=== PATIENT | male | born 1940 | race Caucasian/White ===

== ENCOUNTER 2016-05-22 11:12 | Emergency (ER) | payer OTHER ==
[~2016-05-22] VITALS: Ht 175.3 cm; Wt 88.6 kg
[~2016-05-22 11:12] MED LIST: ADVAIR 500/501 DISK IH; ALLOPURINOL100 MG PO; APRESOLINE10 MG PO; AQUAPHOR W-NAT50 GM TP; AUGMENTIN500 MG PO; BENICAR40 MG PO; BYSTOLIC10 MG PO; CARDURA4 MG PO; CATAPRES0.3 MG PO; CEFDINIR300 MG PO; CENTRUM SILVER1 EAC3 PO; CIALIS10 MG PO; CLINDAMYCIN HC300 MG PO; CLONIDINE HCL0.1 MG PO; CLONIDINE HCL0.3 MG PO; COMBIVENT RESPIM4 GM IH; CONSTULOSE10 GM/15 M PO; CRESTOR10 MG PO; CYANOCOBALAM1000 MCG PO; DAILY VALUE1 EACH PO; DUONEB 2.5-0.5 M3 ML AEROSOL; FERROUS SULFAT325 MG PO; FISH OIL500 MG PO; FLOMAX0.4 MG PO; FLORASTOR250 MG PO; FUROSEMIDE40 MG PO; GABAPENTIN100 MG PO; GENERLAC10 GM/15 M PO; GLIPIZIDE5 MG PO; IRON325 MG PO; JANUVIA25 M1 PO; K-DUR20 MEQ PO; KRILL OIL 5001 EACH PO; LASIX80 MG PO; LUNESTA2 MG PO; MELATONIN3 MG PO; MELATONIN5 M1 PO; MYCOSTATIN 100,60 ML PO; PREDNISONE10 MG PO; PROAIR HFA8.5 GM IH; PROVENTIL,2.5 MG/3 M IH; SPIRONOLACTONE25 MG PO; STOOL SOFTENER100 MG PO; TAMSULOSIN HCL0.4 MG PO; TRADJENTA5 MG PO; TRICOR145 MG PO; VENTOLIN HFA18 GM IH; VITAMIN B12-FO1 EACH PO; VITAMIN D-32000 UNI2 PO; VITAMIN D32000 UNI1 PO; XANAX0.25 MG PO; XARELTO15 MG PO; ZYLOPRIM100 MG PO
[2016-05-22 12:08] LABS: HEMATOCRIT 31.2 % (38.0-50.0); MCH 28.9 PG (29.0-34.0); MCHC 32.7 G/DL (30.0-36.0); MCV 88.4 FL (86-99); MEAN PLAT.VOLUME 10.8 uM^3 (9.0-12.4); PLATELET COUNT 141 K/uL (156-360); RBC DIS.WIDTH-CV 15.4 % (11.8-14.6); RBC DIS.WIDTH-SD 49.6 % (39-53); RED BLOOD COUNT 3.53 M/uL (4.00-5.50); WHITE BLOOD COUNT 7.2 K/uL (4.1-10.2)
[2016-05-22 13:07] VITALS: BP 133/73
== END 2016-05-22 13:07 | disposition home or self-care (01) ==
LOC: EME 11:12
PROVIDERS: Physician Assistant
DX: S51.801A Unspecified open wound of right forearm, initial encounter (principal); W22.09XA Striking against other stationary object, initial encounter; Y92.002 Bathroom of unspecified non-institutional (private) residence as the place of occurrence of the external cause; Z79.01 Long term (current) use of anticoagulants; J44.9 Chronic obstructive pulmonary disease, unspecified; E11.9 Type 2 diabetes mellitus without complications; I10 Essential (primary) hypertension; Z87.891 Personal history of nicotine dependence
CPT/HCPCS: 85027; 99281; 99284

== ENCOUNTER 2016-06-08 02:29 | Inpatient (IN) | payer OTHER ==
[~2016-06-08] VITALS: Ht 175.3 cm; Wt 91.1 kg
[2016-06-08 03:10] LABS: HEMATOCRIT 32.6 % (38.0-50.0); MCH 28.5 PG (29.0-34.0); MCHC 32.8 G/DL (30.0-36.0); MCV 86.9 FL (86-99); MEAN PLAT.VOLUME 11.5 uM^3 (9.0-12.4); PLATELET COUNT 157 K/uL (156-360); RBC DIS.WIDTH-CV 15.8 % (11.8-14.6); RBC DIS.WIDTH-SD 50.2 % (39-53); RED BLOOD COUNT 3.75 M/uL (4.00-5.50)
[2016-06-08 03:23] LABS: CHLORIDE 101 mEq/L (99-109); POTASSIUM 3.9 mEq/L (3.7-5.4); SODIUM 138 mEq/L (136-147)
[2016-06-08 03:24] LABS: GLUCOSE 128 mg/dL (70-99)
[2016-06-08 03:26] LABS: ANION GAP 11 MEQ/L (2-14)
[2016-06-08 03:28] LABS: GFR ESTIMATE (CALCULATED) 35 mL/min/; TROP-I INTERPRETATION NEGATIVE; TROPONIN-I 0.07 ng/mL (0.0-0.30)
[2016-06-08 03:29] LABS: UREA NITROGEN (BUN) 44 mg/dL (9-23)
[2016-06-08] MEDS ORDERED: CLONIDINE HCL0.3 MG PO (04:21)
[2016-06-08] MEDS ORDERED: BYSTOLIC5 MG PO (04:22)
[2016-06-08] MEDS ORDERED: CINNAMON500 MG PO (04:25)
[2016-06-08] MEDS ORDERED: ZZZQUIL25 MG PO (04:28)
[2016-06-08] MEDS ORDERED: BUMETANIDE2 MG PO (04:29)
[2016-06-08] MEDS ORDERED: SILDENAFIL20 MG PO (04:29)
[2016-06-08] MEDS ORDERED: IRON160 M1 PO (04:31)
[2016-06-08 04:54] LABS: TOTAL BILIRUBIN 1.7 mg/dL (0.0-1.0)
[2016-06-08 04:55] LABS: ALKALINE PHOSPHATASE 40 IU/L (3-129)
[2016-06-08 04:58] LABS: DIRECT BILIRUBIN 1.2 mg/dL (0.0-0.3)
[2016-06-08 05:00] LABS: INTER. NORMALIZED RATIO 1.5; PTT 28.6 (25-32)
[2016-06-08] MEDS ORDERED: TRICOR145 MG PO (07:54)
[2016-06-08 08:30] VITALS: BP 111/59
[2016-06-08 12:00] VITALS: BP 115/65
[2016-06-08 12:20] LABS: POINT-OF-CARE METER ID UU13113807
[2016-06-08 16:00] VITALS: BP 135/62
[2016-06-08 17:47] LABS: POINT-OF-CARE METER ID UU14149398
[2016-06-08 19:45] VITALS: BP 146/66
[2016-06-08 21:38] LABS: POINT-OF-CARE METER ID UU14149398
[2016-06-08 23:38] VITALS: BP 115/60
[2016-06-09 04:50] VITALS: BP 140/90
[2016-06-09 07:15] LABS: EOSINOPHIL (%) 0.5 % (0-5); EOSINOPHIL COUNT 0.1 K/uL (0-0.3); HEMATOCRIT 32.5 % (38.0-50.0); IMMATURE GRANULOCYTE (%) 0.5 % (0.0-0.7); IMMATURE GRANULOCYTE COUNT 0.1 K/uL; INSTRUMENT ABS NEUTROPHIL CT 12.2 K/uL; LYMPHOCYTE COUNT 0.6 K/uL (1.0-2.8); MCH 28.9 PG (29.0-34.0); MCHC 32.3 G/DL (30.0-36.0); MCV 89.5 FL (86-99); MEAN PLAT.VOLUME 11.3 uM^3 (9.0-12.4); MONOCYTE (%) 4.8 % (3-12); MONOCYTE COUNT 0.7 K/uL (0-0.8); NEUTROPHIL (%) 89.8 % (45-76); NEUTROPHIL COUNT 12.2 K/uL (1.8-6.4); PLATELET COUNT 120 K/uL (156-360); RBC DIS.WIDTH-CV 15.9 % (11.8-14.6); RBC DIS.WIDTH-SD 52.8 % (39-53); RED BLOOD COUNT 3.63 M/uL (4.00-5.50); WHITE BLOOD COUNT 13.6 K/uL (4.1-10.2)
[2016-06-09 07:38] LABS: POINT-OF-CARE METER ID UU14149398
[2016-06-09 07:44] LABS: ANION GAP 8 MEQ/L (2-14); CHLORIDE 100 MEQ/L (99-109); GFR ESTIMATE (CALCULATED) 37 mL/min/; GLUCOSE 99 mg/dL (70-99); MAGNESIUM 2.1 mg/dl (1.3-2.7); POTASSIUM 3.8 MEQ/L (3.7-5.4); SAMPLE HEMOLYSIS CHECK 0; SAMPLE ICTERIC CHECK 0; SAMPLE LIPEMIA CHECK 0; SODIUM 138 MEQ/L (136-147); UREA NITROGEN (BUN) 45 mg/dL (9-23)
[2016-06-09 12:00] VITALS: BP 127/60
[2016-06-09 12:41] LABS: POINT-OF-CARE METER ID UU14149398
[2016-06-09 13:23] LABS: ADD MIUA? NO; BILIRUBIN NEGATIVE; BLOOD NEGATIVE; COLOR YELLOW ((YELLOW)); GLUCOSE (STRIP) NEGATIVE; KETONES NEGATIVE; LEUKOCYTES NEGATIVE; NITRITE NEGATIVE; PROTEIN (STRIP) NEGATIVE; SPECIFIC GRAVITY 1.009 (1.000-1.030); UROBILINOGEN 0.2 MG/DL (0.2-1.0)
[2016-06-09 16:15] VITALS: BP 142/65
[2016-06-09 16:57] LABS: POINT-OF-CARE METER ID UU14149398
[2016-06-09 19:44] VITALS: BP 134/68
[2016-06-09 21:18] LABS: POINT-OF-CARE METER ID UU14149398
[2016-06-10 00:10] VITALS: BP 114/66
[2016-06-10 04:25] VITALS: BP 132/80
[2016-06-10 07:53] VITALS: BP 138/62
[2016-06-10 08:14] LABS: ANION GAP 7 MEQ/L (2-14); CHLORIDE 99 MEQ/L (99-109); GFR ESTIMATE (CALCULATED) 39 mL/min/; GLUCOSE 88 mg/dL (70-99); POTASSIUM 4.1 MEQ/L (3.7-5.4); SAMPLE HEMOLYSIS CHECK 0; SAMPLE ICTERIC CHECK 0; SAMPLE LIPEMIA CHECK 0; SODIUM 137 MEQ/L (136-147); UREA NITROGEN (BUN) 50 mg/dL (9-23)
[2016-06-10 08:25] LABS: EOSINOPHIL (%) 1.6 % (0-5); EOSINOPHIL COUNT 0.1 K/uL (0-0.3); HEMATOCRIT 32.7 % (38.0-50.0); IMMATURE GRANULOCYTE (%) 0.5 % (0.0-0.7); INSTRUMENT ABS NEUTROPHIL CT 7.4 K/uL; LYMPHOCYTE COUNT 0.7 K/uL (1.0-2.8); MCH 28.5 PG (29.0-34.0); MCHC 32.1 G/DL (30.0-36.0); MCV 88.6 FL (86-99); MEAN PLAT.VOLUME 11.5 uM^3 (9.0-12.4); MONOCYTE (%) 4.6 % (3-12); MONOCYTE COUNT 0.4 K/uL (0-0.8); NEUTROPHIL (%) 84.4 % (45-76); NEUTROPHIL COUNT 7.4 K/uL (1.8-6.4); PLATELET COUNT 137 K/uL (156-360); RBC DIS.WIDTH-CV 15.8 % (11.8-14.6); RBC DIS.WIDTH-SD 51.3 % (39-53); RED BLOOD COUNT 3.69 M/uL (4.00-5.50)
[2016-06-10 08:34] LABS: POINT-OF-CARE METER ID UU14149398
[2016-06-10 08:42] LABS: WHITE BLOOD COUNT 8.7 K/uL (4.1-10.2)
[2016-06-10] MEDS ORDERED: SPIRONOLACTONE25 MG PO (11:16)
== END 2016-06-10 13:53 | disposition home or self-care (01) | DRG 291 ==
LOC: EME 02:29 → 4SOUTH 03:47 → EDOF 03:47 → 4SOUTH 07:52
PROVIDERS: Internal Medicine; Internal Medicine Nephrology; Physician Assistant Medical
PROC: 5A09357 Assistance with Respiratory Ventilation, Less than 24 Consecutive Hours, Continuous Positive Airway Pressure (ICD-10-PCS; principal; 2016-06-08)
DX: I13.0 Hypertensive heart and chronic kidney disease with heart failure and stage 1 through stage 4 chronic kidney disease, or unspecified chronic kidney disease (principal); I50.9 Heart failure, unspecified; N17.9 Acute kidney failure, unspecified; J96.21 Acute and chronic respiratory failure with hypoxia; J44.1 Chronic obstructive pulmonary disease with (acute) exacerbation; E87.70 Fluid overload, unspecified; I27.2 Other secondary pulmonary hypertension; G47.33 Obstructive sleep apnea (adult) (pediatric); N18.3 Chronic kidney disease, stage 3 (moderate); J45.909 Unspecified asthma, uncomplicated; I27.81 Cor pulmonale (chronic); E78.5 Hyperlipidemia, unspecified; E11.22 Type 2 diabetes mellitus with diabetic chronic kidney disease; I48.2 Chronic atrial fibrillation; I08.1 Rheumatic disorders of both mitral and tricuspid valves; K21.9 Gastro-esophageal reflux disease without esophagitis; I87.8 Other specified disorders of veins; D64.9 Anemia, unspecified; N40.0 Benign prostatic hyperplasia without lower urinary tract symptoms; Z66 Do not resuscitate; Z96.651 Presence of right artificial knee joint; Z91.120 Patient's intentional underdosing of medication regimen due to financial hardship; Z79.01 Long term (current) use of anticoagulants; Z87.891 Personal history of nicotine dependence
CPT/HCPCS: 71020; 76770; 80048; 80076; 81003; 82948; 83605; 83735; 83880; 84100; 84484; 85025; 85027; 85610; 85730; 87040; 87070; 87205; 93005; 93306; 94640; 94640 76; 94799; 99202; 99281; 99285; J0456; J0696; J1815; J1940; J7050; J7512

== ENCOUNTER → 2016-08-18 | Outpatient (CLI) | payer OTHER ==
[~2016-08-18] MED LIST changes: +BUMETANIDE2 MG PO; +BYSTOLIC5 MG PO; +CINNAMON500 MG PO; +IRON160 M1 PO; +SILDENAFIL20 MG PO; +ZZZQUIL25 MG PO
== END | disposition home or self-care (01) ==
LOC: RAD 11:53
PROC: 0W9G3ZZ Drainage of Peritoneal Cavity, Percutaneous Approach (ICD-10-PCS; principal; 2016-08-18)
DX: R18.8 Other ascites (principal)

== ENCOUNTER 2016-09-02 10:41 | Emergency (ER) | payer OTHER ==
[~2016-09-02] VITALS: Ht 175.3 cm; Wt 89.1 kg
[2016-09-02 14:31] LABS: HEMATOCRIT 29.8 % (38.0-50.0); MCH 28.9 PG (29.0-34.0); MCHC 33.2 G/DL (30.0-36.0); MCV 87.1 FL (86-99); RBC DIS.WIDTH-CV 16.6 % (11.8-14.6); RED BLOOD COUNT 3.42 M/uL (4.00-5.50); WHITE BLOOD COUNT 8.7 K/uL (4.1-10.2)
[2016-09-02 14:40] LABS: CHLORIDE 99 mEq/L (99-109); POTASSIUM 4.1 mEq/L (3.7-5.4); SODIUM 135 mEq/L (136-147)
[2016-09-02 14:41] LABS: GLUCOSE 103 mg/dL (70-99)
[2016-09-02 14:43] LABS: ANION GAP 12 MEQ/L (2-14)
[2016-09-02 14:45] LABS: GFR ESTIMATE (CALCULATED) 19 mL/min/
[2016-09-02 14:46] LABS: UREA NITROGEN (BUN) 93 mg/dL (9-23)
[2016-09-02 15:31] LABS: ANISOCYTOSIS 2+; BAND NEUTROPHILS 28.2 % (0-8.0); BASOPHILS 0.8 %; EOSINOPHIL ABS CT 0; HYPOCHROMASIA 1+; LYMPHOCYTES 2.6 % (15.0-45.0); MACROCYTES 2+; METAMYELOCYTES 2.6 %; OVALOCYTES 1+; PLAT.SUFFICIENCY DECREASED; PLATELET CLUMPS PRESENT - PLATELET COUNTS APPEARS DECREASED; POIKILOCYTOSIS 1+; SCHISTOCYTES 1+; SEG.NEUTROPHILS 63.2 % (46.0-76.0); TEAR DROP CELLS 1+
[2016-09-02 15:32] LABS: PLATELET COUNT UNABLE TO REPORT K/uL (156-360)
[2016-09-02] MEDS ORDERED: IRON325 M1 PO (17:40)
[2016-09-02] MEDS ORDERED: REVATIO20 MG PO (17:41)
[2016-09-02] MEDS ORDERED: OMEGA-3 KRILL1 EAC1 PO (17:41)
[2016-09-02] MEDS ORDERED: BUMETANIDE2 MG PO (17:44)
[2016-09-02] MEDS ORDERED: BUMETANIDE1 MG PO (17:45)
[2016-09-02 19:00] LABS: CREATINE KINASE 137 IU/L (1-294)
[2016-09-03 06:01] VITALS: BP 109/63
== END 2016-09-03 06:02 | disposition designated cancer center or children's hospital, planned readmission (85) ==
LOC: EME 10:41
PROVIDERS: Physician Assistant
DX: N17.9 Acute kidney failure, unspecified (principal); R18.8 Other ascites; R60.0 Localized edema; M79.604 Pain in right leg; R23.3 Spontaneous ecchymoses; I13.2 Hypertensive heart and chronic kidney disease with heart failure and with stage 5 chronic kidney disease, or end stage renal disease; I50.9 Heart failure, unspecified; E11.22 Type 2 diabetes mellitus with diabetic chronic kidney disease; N18.6 End stage renal disease; Z90.49 Acquired absence of other specified parts of digestive tract; J44.9 Chronic obstructive pulmonary disease, unspecified; I48.91 Unspecified atrial fibrillation; Z79.01 Long term (current) use of anticoagulants; J45.909 Unspecified asthma, uncomplicated; Z87.891 Personal history of nicotine dependence
CPT/HCPCS: 71010; 73700; 80048; 81003; 82550; 82550 91; 85025; 93971; 99281; 99285; J2270